=== PATIENT | male | born 1960 | race Hispanic/Latino ===

== ENCOUNTER 2016-10-27 06:34 | Emergency (ER) | payer MEDICAID ==
[2016-10-27 06:53] VITALS: BMI 32.1
[2016-10-27 06:57] VITALS: BP 126/80; PULSE 83; RESP 16; TEMP 98; O2SAT 97
[2016-10-27] MEDS ORDERED: Naproxen 500 MG TAB PO ONE ×2 (07:25→07:31)
--- NOTE | 2016-10-27 09:32 | ED PDOC ---
HPI: Trauma/Fall - HPI Time Seen by Provider: 10/27/16 07:06 Chief Complaint (Nursing): Upper Extremity Problem/Injury Chief Complaint (Provider): fall History Per: Patient History/Exam Limitations: no limitations Onset/Duration Of Symptoms: Days (x 1) Injury Occurred (Timing): Days Ago: (last night) Additional Complaint(s): Jorgito Mcpherson is a 56 year old male, with a previous medical history of diabetes , who presents to the ED for the evaluations of injuries he sustained secondary to falling last night after consuming 5 beers. Patient reports pain to the right wrist associated with swelling and pain to the left hip. Patient reports walking in the park and tripping stating he broke his fall with his wrists. He denies any head trauma, loss of consciousness, numbness or tingling. He reports going home after the fall and feeling fine but woke up with the pain. PMD: Family Practice Past Medical History Reviewed: Historical Data, Nursing Documentation, Vital Signs Vital Signs: Last Vital Signs Temp 98 F 10/27/16 06:53 Pulse 83 10/27/16 06:53 Resp 16 10/27/16 06:53 BP 126/80 10/27/16 06:53 Pulse Ox 97 10/27/16 09:37 - Medical History PMH: Depression, Diabetes (uncontrolled w/associated neuropathy), HTN, Hypercholesterolemia, Sleep Apnea, Chronic Pain (b/l legs/feet) Denies: Chronic Kidney Disease - Surgical History Surgical History: Appendectomy - Family History Family History: States: Unknown Family Hx - Home Medications Home Medications: Ambulatory Orders Medication Instructions Recorded Atorvastatin [Lipitor] 80 mg PO DAILY 04/01/15 Azelastine HCl [Azelastine HCl] 137 mcg NS DAILY 04/01/15 Duloxetine HCl [Duloxetine] 30 mg PO DAILY 04/01/15 Enalapril Maleate [Enalapril] 5 mg PO DAILY 04/01/15 Fluticasone Nasal [Flonase] 1 spr NS DAILY 04/01/15 Gabapentin [Neurontin] 600 mg PO QID 04/01/15 Glipizide [Glipizide Xl] 5 mg PO DAILY 04/01/15 Montelukast Sodium [Singulair] 10 mg PO DAILY 04/01/15 [place]-3 Fatty Acids/Fish Oil [Fish 1,200 mg PO DAILY 04/01/15 Oil 1,000 mg Capsule] Oxycodone HCl/Acetaminophen 1 tab PO Q4 PRN #20 tab 04/01/15 [Percocet 325 mg-5 mg] Sitagliptin Phos/Metformin HCl 1 ter PO BID 04/01/15 [Janumet Xr 1000 mg-50 mg] Acetaminophen/Oxycodone Hydr 1 mg PO Q4 PRN 04/14/15 [Percocet 10/325 mg Tab] Ibuprofen [Motrin] 600 mg PO TID PRN #30 tab 09/03/15 diaZEpam [Valium] 5 mg PO Q8 PRN #12 tab 09/03/15 oxyCODONE/Acetaminophen [Percocet 1 ea PO Q6 PRN #10 tab 09/03/15 5/325 mg Tab] Naproxen [Naprosyn] 500 mg PO BID PRN #20 tablet 10/27/16 traMADol [Ultram] 50 mg PO TID PRN #12 tab 10/27/16 - Allergies Allergies/Adverse Reactions: Allergies Allergy/AdvReac Type Severity Reaction Status Date / Time No Known Allergies Allergy Verified 10/27/16 06:52 Review of Systems ROS Statement: Except As Marked, All Systems Reviewed And Found Negative Musculoskeletal: Positive for: Hand Pain (right wrist ), Other (left hip pain ) Neurological: Negative for: Numbness, Other (tingling, head trauma, loss of consciousness ) Physical Exam - Reviewed Nursing Documentation Reviewed: Yes Vital Signs Reviewed: Yes - Physical Exam Appears: Positive for: Well, Non-toxic, No Acute Distress Head Exam: Positive for: ATRAUMATIC, NORMAL INSPECTION, NORMOCEPHALIC Skin: Positive for: Normal Color, Warm, Dry Cardiovascular/Chest: Positive for: Regular Rate, Rhythm Respiratory: Positive for: CNT, Normal Breath Sounds Pulses-Radial (L): 2+ Pulses-Radial (R): 2+ Back: Positive for: Normal Inspection. Negative for: Vertebral Tenderness Extremity: Positive for: Tenderness (right wrist at the distl radial and ulnar. no tenderness to the hip with palpation ), Capillary Refill (< 2 seconds ), Swelling (induration of the right wrist ). Negative for: Normal ROM ( difficulty flexing and extending the right wrist ), Deformity Neurologic/Psych: Positive for: Alert, Oriented - ECG O2 Sat by Pulse Oximetry: 97 (R) Pulse Ox Interpretation: Normal - Radiology X-Ray: Interpreted by Me, Viewed By Me X-Ray Interpretation: Fracture (nondisplaced distal radial fracture of the right wrist ), Other (Left hip x-ray is negative for any findings.) Medical Decision Making Medical Decision Making: Initial Impression: Wrist sprain vs fracture Initial Plan: * x-ray right hand * x-ray right wrist * naproxen 500 mg PO * x-ray pelvis * reevaluation Scribe Attestation: Documented by Johanne Grant, acting as a scribe for Krystyna Hobbs MD. Provider Scribe Attestation: All medical record entries made by the Scribe were at my direction and personally dictated by me. I have reviewed the chart and agree that the record accurately reflects my personal performance of the history, physical exam, medical decision making, and the department course for this patient. I have also personally directed, reviewed, and agree with the discharge instructions and disposition. Disposition - Clinical Impression Clinical Impression: Distal radius fracture, right - Patient ED Disposition Is Patient to be Admitted: No Doctor Will See Patient In The: Office Counseled Patient/Family Regarding: Diagnosis, Need For Followup, Rx Given - Disposition Referrals: [facility] [Outside] [facility] [Outside] Disposition: Routine/Home Disposition Time: 09:30 Condition: STABLE Prescriptions: Naproxen [Naprosyn] 500 mg PO BID PRN #20 tablet PRN Reason: Pain, Moderate (4-7) traMADol [Ultram] 50 mg PO TID PRN #12 tab PRN Reason: breakthrough Instructions: Wrist Fracture in Adults (ED) Forms: [employer] (Kosovan) - POA Present On Arrival: Falls Or Trauma
--- NOTE | 2016-10-27 10:13 | RAD ---
PROCEDURE: Right Hand Radiographs. HISTORY: fall onto wrist/hand last night COMPARISON: None. FINDINGS: BONES: No acute displaced fracture or dislocation. Bone alignment is normal. There is periarticular bone demineralization. JOINTS: There is mild degenerative osteoarthrosis in the proximal and distal interphalangeal joints. SOFT TISSUES: Normal. OTHER FINDINGS: None. IMPRESSION: No acute displaced fracture or dislocation.
--- NOTE | 2016-10-27 10:21 | RAD ---
PROCEDURE: Right Wrist Radiographs. HISTORY: fall onto wrist last night COMPARISON: None. FINDINGS: BONES: There is an acute oblique intra-articular fracture in the distal radius. There is also a displaced fracture fragment in posterior to the proximal carpal row. There is an apparent transverse lucency in the trapezoid. Bone alignment is normal. There is mild bone demineralization. JOINTS: Normal. No dislocation. SOFT TISSUES: There is moderate dorsal soft tissue swelling at the wrist joint OTHER FINDINGS: None. IMPRESSION: Acute oblique intra-articular fracture in the distal radius. No dislocation. Also suspected is acute displaced fracture in the trapezoid with 3 mm posterior displacement of the fracture fragment. Moderate dorsal soft tissue swelling.
--- NOTE | 2016-10-27 11:20 | RAD ---
PROCEDURE: Radiographs of the pelvis. HISTORY: fall COMPARISON: None. FINDINGS: BONES: The pelvic ring is intact. There is no acute displaced fracture or bone destruction. Bone alignment is normal. JOINTS: There is mild degenerative osteoarthrosis in the hip joints. The sacroiliac joints are normal. OTHER FINDINGS: None. IMPRESSION: No acute displaced fracture or dislocation.
== END 2016-10-27 10:16 | disposition home or self-care (01) ==
LOC: H.ER 06:34
DX: S52.501A Unspecified fracture of the lower end of right radius, initial encounter for closed fracture (principal); W19.XXXA Unspecified fall, initial encounter; Y92.89 Other specified places as the place of occurrence of the external cause; E11.40 Type 2 diabetes mellitus with diabetic neuropathy, unspecified; E78.00 Pure hypercholesterolemia, unspecified; F32.9 Major depressive disorder, single episode, unspecified; G47.30 Sleep apnea, unspecified; G89.29 Other chronic pain; I10 Essential (primary) hypertension

== ENCOUNTER 2016-11-07 13:35 | Emergency (ER) | payer MEDICAID ==
[2016-11-07 13:35] VITALS: BMI 32.1
[2016-11-07 13:50] VITALS: BP 123/76; PULSE 105; RESP 18; TEMP 98.6; O2SAT 97
--- NOTE | 2016-11-07 14:31 | ED PDOC ---
Upper Extremity Pain/Injury Time Seen by Provider: 11/07/16 13:56 Chief Complaint (Nursing): Finger,Hand,&Wrist Chief Complaint (Provider): Right hand injury History Per: Patient History/Exam Limitations: no limitations Onset/Duration Of Symptoms: Hrs Current Symptoms Are (Timing): Still Present Additional Complaint(s): 56 y/o male presents to the ED for evaluation of pain in his right hand and wrist. Patient recently sustained a fracture in his right wrist/hand and was told to follow up with his orthopedist; patient reports he missed his appointment today and he is also out of his pain medications, prompting his visit to the ED. Patient additionally reports discomfort due to the splint. Patient denies any numbness, tingling. Offers no additional medical complaints. Patient was taking ultram but ran out this med 2 days ago. Past Medical History Reviewed: Historical Data, Nursing Documentation, Vital Signs Vital Signs: Last Vital Signs Temp 98.6 F 11/07/16 13:49 Pulse 105 H 11/07/16 13:49 Resp 18 11/07/16 13:49 BP 123/76 11/07/16 13:49 Pulse Ox 97 11/07/16 13:49 - Medical History PMH: Depression, Diabetes (uncontrolled w/associated neuropathy), HTN, Hypercholesterolemia, Sleep Apnea, Chronic Pain (b/l legs/feet) - Surgical History Surgical History: Appendectomy - Family History Family History: States: No Known Family Hx - Living Arrangements Living Arrangements: Alone - Social History Current smoker - smoking cessation education provided: No Alcohol: None Drugs: Denies - Home Medications Home Medications: Ambulatory Orders Medication Instructions Recorded Atorvastatin [Lipitor] 80 mg PO DAILY 04/01/15 Azelastine HCl [Azelastine HCl] 137 mcg NS DAILY 04/01/15 Duloxetine HCl [Duloxetine] 30 mg PO DAILY 04/01/15 Enalapril Maleate [Enalapril] 5 mg PO DAILY 04/01/15 Fluticasone Nasal [Flonase] 1 spr NS DAILY 04/01/15 Gabapentin [Neurontin] 600 mg PO QID 04/01/15 Glipizide [Glipizide Xl] 5 mg PO DAILY 04/01/15 Montelukast Sodium [Singulair] 10 mg PO DAILY 04/01/15 [place]-3 Fatty Acids/Fish Oil [Fish 1,200 mg PO DAILY 04/01/15 Oil 1,000 mg Capsule] Oxycodone HCl/Acetaminophen 1 tab PO Q4 PRN #20 tab 04/01/15 [Percocet 325 mg-5 mg] Sitagliptin Phos/Metformin HCl 1 ter PO BID 04/01/15 [Janumet Xr 1000 mg-50 mg] Acetaminophen/Oxycodone Hydr 1 mg PO Q4 PRN 04/14/15 [Percocet 10/325 mg Tab] Ibuprofen [Motrin] 600 mg PO TID PRN #30 tab 09/03/15 diaZEpam [Valium] 5 mg PO Q8 PRN #12 tab 09/03/15 oxyCODONE/Acetaminophen [Percocet 1 ea PO Q6 PRN #10 tab 09/03/15 5/325 mg Tab] Naproxen [Naprosyn] 500 mg PO BID PRN #20 tablet 10/27/16 traMADol [Ultram] 50 mg PO TID PRN #12 tab 10/27/16 Ibuprofen [Motrin Tab] 800 mg PO Q8 PRN #20 tab 11/07/16 - Allergies Allergies/Adverse Reactions: Allergies Allergy/AdvReac Type Severity Reaction Status Date / Time No Known Allergies Allergy Verified 11/07/16 13:47 Review of Systems ROS Statement: Except As Marked, All Systems Reviewed And Found Negative Musculoskeletal: Positive for: Hand Pain (right hand and wrist pain) Physical Exam - Reviewed Nursing Documentation Reviewed: Yes Vital Signs Reviewed: Yes - Physical Exam Appears: Positive for: Well, Non-toxic, No Acute Distress Head Exam: Positive for: ATRAUMATIC, NORMAL INSPECTION, NORMOCEPHALIC Skin: Positive for: Normal Color Eye Exam: Positive for: Normal appearance Cardiovascular/Chest: Positive for: Regular Rate, Rhythm Respiratory: Positive for: Normal Breath Sounds. Negative for: Respiratory Distress Extremity: Positive for: Other (volar splint in place to right wrist and hand; no clinical indication of compartment syndrome, normal distal sensation, normal cap refill) Neurologic/Psych: Positive for: Alert, Oriented - ECG O2 Sat by Pulse Oximetry: 97 (RA) Pulse Ox Interpretation: Normal - Other Rad Right hand and wrist x-ray X-Ray: Interpreted by Me, Viewed By Me X-Ray Interpretation: distal radius fracture Medical Decision Making Medical Decision Making: Time: 1405 Impression: Right wrist fracture Plan: * XR Right Hand * XR Right wrist * Motrin 600 mg PO Gil wraps of splint were replaced. Patient states splint feels better. I called clinic and was able to arrange for follow up visit for patient tomorrow morning at 9:20 am. Patient was instructed to obtain referral from clinic doctor for his upcoming visit with orthopedist next week. Rx motrin also was given. Scribe Attestation: Documented by Sonya Lemus acting as a scribe for SHER Clayton Provider Attestation: All medical record entries made by the Scribe were at my direction and personally dictated by me. I have reviewed the chart and agree that the record accurately reflects my personal performance of the history, physical exam, medical decision making, and the department course for this patient. I have also personally directed, reviewed, and agree with the discharge instructions and disposition. Disposition - Clinical Impression Clinical Impression: Wrist fracture - Patient ED Disposition Is Patient to be Admitted: No Counseled Patient/Family Regarding: Diagnosis, Need For Followup, Rx Given - Disposition Referrals: [facility] [Outside] Disposition: Routine/Home Disposition Time: 15:35 Condition: STABLE Additional Instructions: GO DIRECTLY TO CLINIC IN THE MORNING FOR YOUR APPOINTMENT AT 9:20 AM. PLEASE ARRIVE AT 9:10 AM FOR YOUR APPOINTMENT. Prescriptions: Ibuprofen [Motrin Tab] 800 mg PO Q8 PRN #20 tab PRN Reason: Pain, Moderate (4-7) Instructions: Splint Care (ED), Wrist Fracture in Adults (ED)
--- NOTE | 2016-11-07 16:18 | RAD ---
PROCEDURE: Right Hand Radiographs. HISTORY: trauma COMPARISON: 10/27/2016 FINDINGS: BONES: Oblique nondisplaced fracture of the distal radius, intra-articular. This involves the radial styloid process. Probable triquetrum fracture. Posteriorly displaced fragment identified in the lateral view. No other fracture identified. Joint spaces and articular surfaces are preserved. JOINTS: Normal. No osteoarthritic changes. SOFT TISSUES: Normal. OTHER FINDINGS: None. IMPRESSION: Oblique nondisplaced intra-articular distal radial fracture. Probable triquetrum fracture.
--- NOTE | 2016-11-07 16:20 | RAD ---
PROCEDURE: Right Wrist Radiographs. HISTORY: trauma COMPARISON: 10/27/2016 FINDINGS: BONES: Comminuted nondisplaced intra-articular distal radial fracture. There is an oblique component appreciated in the oblique projection. There is also fracture seen in the dorsal aspect of the distal radius in the lateral view. There is a probable triquetrum fracture with dorsal displacement of a bony fragment, in the lateral projection. The ulnar styloid process is intact. There is no other fracture identified. Normal carpal alignment is maintained. JOINTS: Normal. No dislocation. SOFT TISSUES: Normal. OTHER FINDINGS: None. IMPRESSION: Probable comminuted nondisplaced distal radial fracture, intra-articular. Suspect triquetrum fracture.
== END 2016-11-07 16:13 | disposition home or self-care (01) ==
LOC: H.ER 13:35
DX: Z47.89 Encounter for other orthopedic aftercare (principal); E11.40 Type 2 diabetes mellitus with diabetic neuropathy, unspecified; E78.00 Pure hypercholesterolemia, unspecified; I10 Essential (primary) hypertension; G89.29 Other chronic pain

== ENCOUNTER 2017-10-05 21:30 | Observation (INO) | payer MEDICAID ==
[2017-10-05 21:30] VITALS: BMI 32.1
[2017-10-05 23:40] LABS: BASO # 0.1 K/uL (0.0-0.2); BASO % 0.6 % (0.0-2.0); EOS # 0.3 K/uL (0.0-0.7); HEMOGLOBIN 12.1 g/dL (12.0-18.0); LYMPH # 2.3 K/uL (1.0-4.3); LYMPH % 26.8 % (20.0-40.0); MEAN CELL VOLUME 84.9 fl (80.0-94.0); MEAN CORPUSCULAR HEMOGLOBIN 27.8 pg (27.0-31.0); MEAN CORPUSCULAR HGB CONC 32.8 g/dL (33.0-37.0); MEAN PLATELET VOLUME 9.1 fl (7.2-11.7); MONO # 0.9 K/uL (0.0-0.8); MONO % 9.8 % (0.0-10.0); NEUT # 5.2 K/uL (1.8-7.0); NEUT % 59.8 % (50.0-75.0); RBC 4.34 Mil/uL (4.40-5.90); RED CELL DISTRIBUTION WIDTH 14.8 % (11.5-14.5); WHITE BLOOD COUNT 8.7 K/uL (4.8-10.8)
--- NOTE | 2017-10-05 23:47 | ED PDOC ---
Syncope/Near Syncope/Dizziness Time Seen by Provider: 10/05/17 22:43 Chief Complaint (Nursing): Dizziness/Lightheaded Chief Complaint (Provider): Dizziness History Per: Patient History/Exam Limitations: no limitations Onset/Duration Of Symptoms: Days (x1), Intermittent Episodes Current Symptoms Are (Timing): Still Present Seizure Or Post-ictal Symptoms: None Fall Associated With With Symptoms: No Injury As Result Of Fall Additional Complaint(s): Jorgito Mcpherson is a 57 year old male, with a past medical history of hypertension and diabetes, who presents to the emergency department complaining of intermittent episodes of dizziness for x1 day onset since this morning when he woke up. Patient states he felt dizzy and fell back on his mattress. He reports intermittent periods of dizziness throughout the day, he states they are not provoked with positioning and last few minutes. He denies any chest pain, shortness of breath, nausea, vomiting, or syncope. No further medical complaints. PMD: None provided. NIHSS Stroke Scale 2 - Date/Time Evaluation Performed Date Performed: 10/05/17 Time Performed: 22:46 When Was NIHSS Performed: Baseline - How Severe is the Stroke Level of Consciousness: 0=Alert LOC to Questions: 0=Both comments correct LOC to commands: 0=Obeys both correctly Best Gaze: 0=Normal Visual: 0=No visual loss Facial: 0=Normal Motor Arm - Left: 0=No drift Motor Arm - Right: 0=No drift Motor Leg - Left: 0=No drift Motor Leg - Right: 0=No drift Limb Ataxia: 0=Absent Sensory: 0=Normal Best Language: 0=No aphasia Dysarthia: 0=Normal articulation Extinction & Inattention (Neglect): 0=Normal, no object Score: 0 Past Medical History Reviewed: Historical Data, Nursing Documentation, Vital Signs Vital Signs: Last Vital Signs Temp 98.1 F 10/05/17 22:15 Pulse 74 10/05/17 22:15 Resp 18 10/05/17 22:15 BP 116/67 10/05/17 22:15 Pulse Ox 99 10/05/17 22:15 - Medical History PMH: Depression, Diabetes (uncontrolled w/associated neuropathy), HTN, Hypercholesterolemia, Sleep Apnea, Chronic Pain (b/l legs/feet) Denies: Chronic Kidney Disease - Surgical History Surgical History: Appendectomy - Family History Family History: States: Unknown Family Hx - Social History Ex-Smoker (has not smoked in the last 12 months): Yes Alcohol: Social Drugs: Denies - Home Medications Home Medications: Ambulatory Orders Medication Instructions Recorded Atorvastatin [Lipitor] 80 mg PO DAILY 04/01/15 Azelastine HCl 137 mcg NS DAILY 04/01/15 Duloxetine HCl 30 mg PO DAILY 04/01/15 Enalapril Maleate 5 mg PO DAILY 04/01/15 Gabapentin [Neurontin] 1,600 mg PO BID 04/01/15 Glipizide [Glipizide Xl] 5 mg PO DAILY 04/01/15 Montelukast Sodium [Singulair] 10 mg PO DAILY 04/01/15 - Allergies Allergies/Adverse Reactions: Allergies Allergy/AdvReac Type Severity Reaction Status Date / Time No Known Allergies Allergy Verified 11/07/16 13:47 Review of Systems ROS Statement: Except As Marked, All Systems Reviewed And Found Negative Cardiovascular: Negative for: Chest Pain Respiratory: Negative for: Shortness of Breath Gastrointestinal: Negative for: Nausea, Vomiting Neurological: Positive for: Dizziness. Negative for: Other (syncope) Physical Exam - Reviewed Nursing Documentation Reviewed: Yes Vital Signs Reviewed: Yes - Physical Exam Appears: Positive for: Non-toxic Head Exam: Positive for: ATRAUMATIC, NORMOCEPHALIC Skin: Positive for: Normal Color, Warm, Dry Eye Exam: Positive for: Normal appearance, EOMI, PERRL. Negative for: Nystagmus Neck: Positive for: Painless ROM, Supple Cardiovascular/Chest: Positive for: Regular Rate, Rhythm. Negative for: Murmur Respiratory: Positive for: Normal Breath Sounds. Negative for: Respiratory Distress Gastrointestinal/Abdominal: Positive for: Normal Exam, Soft. Negative for: Tenderness Back: Negative for: L CVA Tenderness, R CVA Tenderness, Vertebral Tenderness Extremity: Positive for: Normal ROM (upper and lower extremities). 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 Negative for: Motor/Sensory Deficits , Aphasia, Facial Droop - Laboratory Results Result Diagrams: 10/05/17 23:36 10/06/17 06:30 - ECG O2 Sat by Pulse Oximetry: 99 (RA) Pulse Ox Interpretation: Normal Medical Decision Making Medical Decision Making: Time: 22:43 Initial Impression: Dizziness. Differential includes peripheral vertigo, consideration of BPPV and vestibular nystagmus; central vertigo considering posterior cerebellar circulation deficiency Initial Plan: --Head w/o contrast [CT] --EKG --BMP --Troponin I --CBC w/ differential --PTT --PT --Reevaluation 00:00 -Patient will be endorsed to Dr. Suarez, pending CT and reevaluation. ----- Scribe Attestation: Documented by Fernando Callejas, acting as a scribe for Jolly Shea MD. Provider Scribe Attestation: All medical record entries made by the Scribe were at my direction and personally dictated by me. I have reviewed the chart and agree that the record accurately reflects my personal performance of the history, physical exam, medical decision making, and the department course for this patient. I have also personally directed, reviewed, and agree with the discharge instructions and disposition. Disposition - Clinical Impression Clinical Impression: Dizziness - Patient ED Disposition Is Patient to be Admitted: Transfer of Care Counseled Patient/Family Regarding: Studies Performed, Diagnosis - Disposition Disposition: Transfer of Care Disposition Time: 12:00 Condition: STABLE Patient Signed Over To: Eron Suarez Handoff Comments: Pending CT and reeval rTPA Inclusion/Exclusion - Refusal of Treatment Patient Refused Treatment: No - Inclusion Criteria for Altepase Patient is 18 years or Older: Yes Clinical DX Ischemic Stroke Cause Neurological Deficit: No Time of Onset Established Less Than 270 Mins Before TX Begin: No Risk/Benefit Discussed With Patient/Family Member Present: No
[2017-10-05 23:48] LABS: BLOOD UREA NITROGEN 32 mg/dl (9-20); CALCIUM 9.2 mg/dL (8.4-10.2); GFR AFRICAN-AMERICAN > 60; GFR NON-AFRICAN AMERICAN 52
--- NOTE | 2017-10-06 00:02 | ED PDOC ---
- Laboratory Results Result Diagrams: 10/05/17 23:36 10/05/17 23:36 - ECG O2 Sat by Pulse Oximetry: 99 (RA) Medical Decision Making Medical Decision Makin:00 -Patient was endorsed to me by Dr. Shea, pending CT and reevaluation 00:[address] FINDINGS: Brain: Areas of decreased attenuation noted within the periventricular and subcortical white matter likely related to chronic microangiopathic ischemic changes given the patient's stated age.There is mild diffuse cerebral atrophy present, consistent with this patient's age. No hemorrhage. Ventricles: Unremarkable. No ventriculomegaly. Bones/joints: Unremarkable. No acute fracture. Soft tissues: Unremarkable. Sinuses: Partial opacification of the left sphenoid sinus and ethmoids. Mastoid air cells: Unremarkable as visualized. No mastoid effusion. IMPRESSION: No evidence of acute intracranial hemorrhage. Patient seen at bedside, states he feels well, no dizziness since 4PM. Patient reiterates that his dizziness was not positional, not extinguished by rest. Will admit for MRI in AM for possible occipital/cerebellar cause of dizziness. Case admitted to FP service. Disposition - Clinical Impression Clinical Impression: Dizziness - POA Present On Arrival: None - Disposition Disposition: Hospitalized as Observation Patient Disposition Time: 00:40 Condition: FAIR
[2017-10-06 00:26] LABS: INR 1.1 (0.9-1.2); PARTIAL THROMBOPLASTIN TIME 28.2 Seconds (25.6-37.1); PROTHROMBIN TIME 11.9 Seconds (9.8-13.1)
[2017-10-06] MEDS ORDERED: Dextrose 50% SYRINGE Inj (50 ml) IV PRN ×2 (02:51→08:15)
[2017-10-06] MEDS ORDERED: Glucagon Recombinant 1 mg Inj IM PRN ×2 (02:51→08:15)
[2017-10-06] MEDS: Sodium Chloride 0.9% 500 ML IV SCH ×2 (02:57→07:51)
--- NOTE | 2017-10-06 03:32 | CP.PCM.HP ---
Addendum entered and electronically signed by Becky Magallanes MD 10/06/17 16:02: [place] hallpike maneuver negative Addendum entered and electronically signed by Becyk Magallanes MD 10/06/17 14:37: S: Patient seen and examined this morning at bedside, NAD. Patient reports no dizziness, tolerating PO intake. Denies dizziness, weakness, palpitations, SOB, chest pain, blurred vision, abdominal pain, f/c/n/v, urinary symptoms or numbness/tingling. O: HD stable, CBC, CMP reviewed, Troponin negative EKG: NSR Head CT: No acute intracranial pathology MRI Head: Prelim; No acute finding (Prelim report result was endorsed by Dr. Santana from [facility]) A/P: 57 y/o male for evaluation of one day hx of intermittent dizziness -Patient is currently asymptomatic, Labs and imaging reviewed with patient, patient agrees with discharge plan, follow up with PMD. ER precautions discussed with patient. -Discharge Original Note: History of Present Illness - History of Present Illness History of Present Illness: 57 y/o male with PMHx of HTN, DM type 2, Sleep Apnea, HLD presents to ED complaining of intermittent episodes of dizziness for one day. Reports that dizziness episodes felt like lightheadedness sensation. First episode he was walking, coming back from the bathroom, felt dizzy associated with poor balance , and fell back on his mattress, " I collapsed on my mattress", but denies LOC. States most of the episodes happened when he changed from sitting to standing position. Denies chest pain, SOB, palpitations, blurry vision, nausea or other complains during the dizziness episodes. Denies fevers, diarrheas, or dysuria. Reports waking up at night 2-3 times to urinate, and sometimes 4-5 times. PMD: Dr. Hitchcock at [facility] Allergies: NKDA SurgicalHx: Plantar fascitis, Left foot Fx, Cholecystectomy SocialHx: Former smoker, etoh occasional, denies illicit drugs ER course -vital signs stable WNL -Alert, awake, unremarkable neurological exam -labs: CBC, coagulation panel unremarkable. CMP: slightly elevated BUN, and random glucose -troponin I wnl -Head CT scan reported as no evience of intracraneal hemorrhage. Unremarkable study. Pending official report Present on Admission - Present on Admission Any Indicators Present on Admission: No History of DVT/PE: No History of Uncontrolled Diabetes: No Urinary Catheter: No Decubitus Ulcer Present: No Review of Systems - Review of Systems All systems: reviewed and no additional remarkable complaints except (as per HPI ) Past Patient History - Past Medical History & Family History Past Medical History?: Yes - Past Social History Alcohol: Social Drugs: Denies - CARDIAC Hx Cardiac Disorders: Yes - PULMONARY Hx Sleep Apnea: Yes - NEUROLOGICAL Hx Neurological Disorder: No - HEENT Hx HEENT Problems: No - RENAL Hx Chronic Kidney Disease: No - ENDOCRINE/METABOLIC Hx Endocrine Disorders: Yes - HEMATOLOGICAL/ONCOLOGICAL Hx Blood Disorders: Yes Hx Shingles: Yes - INTEGUMENTARY Hx Dermatological Problems: No - MUSCULOSKELETAL/RHEUMATOLOGICAL Hx Falls: Yes - GASTROINTESTINAL Hx Gastrointestinal Disorders: No - GENITOURINARY/GYNECOLOGICAL Hx Genitourinary Disorders: No - PSYCHIATRIC Hx Depression: Yes - SURGICAL HISTORY Hx Appendectomy: Yes - ANESTHESIA Hx Anesthesia: Yes Hx Anesthesia Reactions: No Hx Malignant Hyperthermia: No Meds Allergies/Adverse Reactions: Allergies Allergy/AdvReac Type Severity Reaction Status Date / Time No Known Allergies Allergy Verified 11/07/16 13:47 Physical Exam - Constitutional Appears: Non-toxic, No Acute Distress - Head Exam Head Exam: ATRAUMATIC, NORMOCEPHALIC - Eye Exam Eye Exam: EOMI, Normal appearance Pupil Exam: PERRL - ENT Exam ENT Exam: Mucous Membranes Dry - Neck Exam Neck exam: Positive for: Full Rom, Normal Inspection - Respiratory Exam Respiratory Exam: Clear to Auscultation Bilateral, NORMAL BREATHING PATTERN. absent: Chest Wall Tenderness, Rales, Rhonchi, Wheezes, Respiratory Distress - Cardiovascular Exam Cardiovascular Exam: REGULAR RHYTHM, +S1, +S2 - GI/Abdominal Exam GI & Abdominal Exam: Normal Bowel Sounds, Soft. absent: Distended, Rebound, Rigid, Tenderness Additional comments: Obese - Extremities Exam Extremities exam: Positive for: normal inspection. Negative for: calf tenderness, pedal edema - Back Exam Back exam: NORMAL INSPECTION - Neurological Exam Neurological exam: Alert, CN II-XII Intact, Normal Gait, Oriented x3, Reflexes Normal - Psychiatric Exam Psychiatric exam: Normal Affect, Normal Mood - Skin Skin Exam: Dry, Intact, Normal Color, Warm Results - Vital Signs Recent Vital Signs: Last Vital Signs Temp 98.1 F 10/06/17 03:00 Pulse 61 06/16/18 03:00 Resp 14 10/06/17 03:00 BP 100/62 10/06/17 03:00 Pulse Ox 96 10/06/17 03:00 - Labs Result Diagrams: 10/05/17 23:36 10/05/17 23:36 Labs: Laboratory Results - last 24 hr 10/05/17 10/05/17 10/05/17 23:36 23:36 23:36 WBC 8.7 RBC 4.34 L Hgb 12.1 Hct 36.8 MCV 84.9 MCH 27.8 MCHC 32.8 L RDW 14.8 H Plt Count 202 MPV 9.1 Neut % (Auto) 59.8 Lymph % (Auto) 26.8 [place] % (Auto) 9.8 Eos % (Auto) 3.0 Baso % (Auto) 0.6 Neut # (Auto) 5.2 Lymph # (Auto) 2.3 [place] # (Auto) 0.9 H Eos # (Auto) 0.3 Baso # (Auto) 0.1 PT 11.9 INR 1.1 APTT 28.2 Sodium 135 Potassium 4.5 Chloride 100 Carbon Dioxide 22 Anion Gap 18 BUN 32 H Creatinine 1.4 Est GFR ( Amer) > 60 Est GFR (Non-Af Amer) 52 Random Glucose 172 H Calcium 9.2 Troponin I 0.0470 Assessment & Plan - Assessment and Plan (Free Text) Assessment: 57 y/o male with PMHx of HTN, DM type 2, Sleep Apnea, HLD admitted with persistent dizziness. Plan: Dizziness -MedSurg -denies syncope episodes -Orthostatic BP: negative for Orthostatic Hypotension. Lyin/70, sittin/70, standin/65 -troponin I negative -EKG: NSR, HR: 61, no evidence of ST-T wave changes -Head CT scan reported as no evidence of intracraneal hemorrhage. Unremarkable study. Pending official report -as per ER provider will need Brain MRI w/o contrast in AM to r/o possible occipital/cerebellar cause of dizziness. -f/u Brain MRI w/o contrast in AM Diabetes Mellitus type 2 -as per records noted in eCW -Metformin 1000 mg BID PO -Glipizide XL 5 mg PO -Alogliptin 25 mg PO ( because we do not have in house, Pharmacy was called and substitute is Sitagliptin 100 mg PO) -accucheck -check HgbA1C, last time checked was in 2017 and was 9.8 -check lipid profile, as per [employer]/eCW not recently tested -Hypoglycemic protocol DVT prophylaxis -SCDs lovenox 40 mg SC - Date & Time Date: 10/06/17 Time: 03:30
[2017-10-06 05:02] VITALS: RESP 18
[2017-10-06] MEDS ORDERED: Pneumococcal 23-Valent Vaccine IM ONE (05:19)
[2017-10-06 07:50] LABS: HDL CHOLESTEROL 22 MG/DL (30-70)
[2017-10-06 08:00] LABS: LDL CHOLESTEROL 64 mg/dL (0-129)
[2017-10-06] MEDS ORDERED: Sodium Chloride 0.9% 1,000 ML IV SCH (08:15)
[2017-10-06 08:20] LABS: ALB/GLOB RATIO 1.1 (1.0-2.1); ALBUMIN 3.4 g/dL (3.5-5.0); ALT/SGPT 32 U/L (21-72); AST/SGOT 19 U/L (17-59); BLOOD UREA NITROGEN 28 mg/dl (9-20); GFR AFRICAN-AMERICAN > 60; GFR NON-AFRICAN AMERICAN > 60
--- NOTE | 2017-10-06 08:29 | CP.PCM.PCO ---
Physician Communication Note - Physician Communication Note Physician Communication Note: Dr Cash Addendum Addendum: 10/06/17 08:[address] Rm regarding Ativan dosing in patient with known AVINASH for hx of claustrophobic feelings during MRI. Agreed to administer 1mg IVP and order an additional 1mg IVP IF the patient still feeling anxious. This was communicated clearly to nursing staff on 6S.
[2017-10-06] MEDS ORDERED: GlipiZIDE 5 mg SR Tab PO SCH (09:00)
--- NOTE | 2017-10-06 09:29 | CT ---
PROCEDURE: CT HEAD WITHOUT CONTRAST. HISTORY: dizziness COMPARISON: None available. TECHNIQUE: Axial computed tomography images were obtained through the head/brain without intravenous contrast. Radiation dose: Total exam DLP = 776.2 mGy-cm. This CT exam was performed using one or more of the following dose reduction techniques: Automated exposure control, adjustment of the mA and/or kV according to patient size, and/or use of iterative reconstruction technique. FINDINGS: HEMORRHAGE: No intracranial hemorrhage. BRAIN: No mass effect or edema. No atrophy or chronic microvascular ischemic changes. Right caudate head lacunar infarction. VENTRICLES: Unremarkable. No hydrocephalus. CALVARIUM: Unremarkable. PARANASAL SINUSES: Scattered ethmoid air cell opacification. MASTOID AIR CELLS: Prior right mastoidectomy OTHER FINDINGS: None. IMPRESSION: No acute intracranial pathology.
[2017-10-06 16:16] VITALS: BP 113/62; PULSE 52; TEMP 97.9; O2SAT 96
[2017-10-06 18:05] LABS: SQUAMOUS EPITHIAL < 1 /hpf (0-5); URINE BACTERIA RARE (<OCC); URINE BILIRUBIN NEGATIVE (NEGATIVE); URINE BLOOD NEGATIVE (NEGATIVE); URINE CLARITY CLEAR (Clear); URINE COLOR YELLOW (YELLOW); URINE GLUCOSE (UA) >=500 mg/dL (Normal); URINE LEUKOCYTE ESTERASE NEG Leu/uL (Negative); URINE PROTEIN NEGATIVE (NEGATIVE); URINE UROBILINOGEN 0.2-1.0 mg/dL (0.2-1.0)
[2017-10-06] MEDS ORDERED: Enoxaparin 40 mg Syringe SC SCH (22:00)
--- NOTE | 2017-10-07 18:33 | MRI ---
PROCEDURE: MRI BRAIN WITHOUT CONTRAST HISTORY: Dizziness/pre-syncope COMPARISON: None. TECHNIQUE: Multiplanar, multisequence MR images of the brain were obtained without intravenous contrast enhancement. FINDINGS: HEMORRHAGE: None DWI: No evidence of an acute or early subacute infarction. BRAIN PARENCHYMA: Good corticomedullary differentiation is seen. Diffuse expansion of the ventriculosulcal and cisternal spaces is appreciated with white matter increased long TR signal compatible with diffuse cerebral atrophy and chronic microangiopathy. No suspicious extra-axial fluid collection is identified and the midline brain anatomy appears grossly nonfocal as imaged. There is no mass effect throughout. VENTRICLES: Unremarkable. No hydrocephalus. CRANIUM: Unremarkable. ORBITS: Grossly unremarkable. PARANASAL SINUSES/MASTOIDS: Clear VASCULAR SYSTEM: Skull base flow voids intact. OTHER FINDINGS: None. IMPRESSION: Stable age-appropriate age related neuro degenerative changes identified throughout the cerebrum. No acute intracranial MR findings. Concordant preliminary report from [facility], 10/06/2017.
--- NOTE | 2017-10-08 11:44 | CARD ---
APPROVED REPORT EKG Measurement Heart [id number] [id number] <Conclusion> Normal sinus rhythm Normal ECG
== END 2017-10-06 17:40 | disposition home or self-care (01) ==
LOC: H.ER 21:30 → H.ERHOLD 10-06 01:42 → H.MEDSURG1 10-06 03:20
PROVIDERS: ADMIT Family Medicine; ATTEND Family Medicine
DX: R42 Dizziness and giddiness (principal); E11.9 Type 2 diabetes mellitus without complications; E78.00 Pure hypercholesterolemia, unspecified; E78.5 Hyperlipidemia, unspecified; F40.240 Claustrophobia; G47.33 Obstructive sleep apnea (adult) (pediatric); I10 Essential (primary) hypertension; Z87.891 Personal history of nicotine dependence; Z90.49 Acquired absence of other specified parts of digestive tract; F32.9 Major depressive disorder, single episode, unspecified; G89.29 Other chronic pain; Z79.84 Long term (current) use of oral hypoglycemic drugs; Z79.899 Other long term (current) drug therapy; Z23 Encounter for immunization
CPT/HCPCS: 36415; 70450; 70551; 80048; 80053; 80061; 81003; 82948; 83036; 84484; 85025; 85610; 85730; 90471; 90732; 93005; 96360; 96361; 99284; G0378; J2060; J7030; J7040

== ENCOUNTER 2017-11-13 10:46 | Emergency (ER) | payer MEDICAID ==
[2017-11-13 10:47] VITALS: BMI 32.1
[2017-11-13] MEDS ORDERED: Piperacillin/Tazobact 3.375 GM in Sodium Chloride 0.9% 100 ML IVPB STA (12:01)
--- NOTE | 2017-11-13 12:17 | ED PDOC ---
Lower Extremity Pain/Injury Chief Complaint (Provider): right leg swelling History Per: Patient History/Exam Limitations: no limitations Onset/Duration Of Symptoms: Days Current Symptoms Are (Timing): Still Present Additional Complaint(s): 57 yo M with poorly controlled DM2 with neuropathy, hypertension, hyperlipidemia , sleep apnea, depression presented to emergency room today due to noticing increased swelling in right lower extremity. Pt states he noticed swelling last night, but both legs were swollen and he thought it was from walking a lot during the day. In the morning he noticed left leg returned to normal size but right leg was persistently swollen and painful. Upon questioning about wounds on his feet, pt disclosed that he has a wound on base of R great toe that he states was a callus that he picked at, and this morning the skin fell off and left open wound. Denies feeling ill, fevers, chills, shortness of breath, chest pains, GI upset. Admits to occasional numbness and tingling in lower extremities which is not new. 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 PMH: DM2, hyperlipidemia, sleep apnea, diabetic neuropathy Past surg hx: b/l plantar fasciitis surgery, L ankle surgery with hardware, appendectomy Social hx: denies tobacco, alcohol, drug use Allergies: nkda Medications: metformin, gabapentin, enalapril, atorvastatin, glipizide, cymbalta <Tatianna Vasquez - Last Filed: 11/13/17 12:40> <Siddharth Robledo - Last Filed: 11/13/17 15:01> Chief Complaint (Nursing): Lower Extremity Problem/Injury Past Medical History Reviewed: Nursing Documentation, Vital Signs Vital Signs: Last Vital Signs Temp 98.2 F 11/13/17 10:56 Pulse 65 11/13/17 10:56 Resp 20 11/13/17 10:56 BP 127/80 11/13/17 10:56 Pulse Ox 97 11/13/17 10:56 - Medical History PMH: Depression, Diabetes (uncontrolled w/associated neuropathy), HTN, Hypercholesterolemia, Sleep Apnea, Chronic Pain (b/l legs/feet) Denies: HIV, Chronic Kidney Disease - Surgical History Surgical History: Appendectomy Other surgeries: L ankle surgery; bilateral plantar fasciitis surg - Family History Family History: States: Unknown Family Hx <Tatianna Vasquez - Last Filed: 11/13/17 12:40> Vital Signs: Last Vital Signs Temp 98.2 F 11/13/17 10:56 Pulse 65 11/13/17 10:56 Resp 20 11/13/17 10:56 BP 127/80 11/13/17 10:56 Pulse Ox 97 11/13/17 12:40 <Siddharth Robledo - Last Filed: 11/13/17 15:01> - Home Medications Home Medications: Ambulatory Orders Medication Instructions Recorded Atorvastatin [Lipitor] 80 mg PO DAILY 04/01/15 Azelastine HCl 137 mcg NS DAILY 04/01/15 Duloxetine HCl 30 mg PO DAILY 04/01/15 Enalapril Maleate 5 mg PO DAILY 04/01/15 Gabapentin [Neurontin] 1,600 mg PO BID 04/01/15 Glipizide [Glipizide Xl] 5 mg PO DAILY 04/01/15 Montelukast Sodium [Singulair] 10 mg PO DAILY 04/01/15 Levofloxacin [Levaquin] 500 mg PO BID #20 tablet 11/13/17 Naproxen [Naprosyn] 500 mg PO Q12H #20 tab 11/13/17 Sulfamethoxazole/Trimethoprim 1 tab PO BID #20 tab 11/13/17 [Bactrim DS 800 mg-160 mg] - Allergies Allergies/Adverse Reactions: Allergies Allergy/AdvReac Type Severity Reaction Status Date / Time No Known Allergies Allergy Verified 11/13/17 11:24 Wells Criteria for PE - Wells Criteria for Pulmonary Embolism Clinical Signs and Symptoms of DVT: Yes P.E is #1 Diagnosis, or Equally Likely: No Heart Rate >100: No Immobilization at least 3 days;Surgery previous 4 weeks: No Previous, objectively diagnosed PE or DVT: No Hemoptysis: No Malignancy w/treatment within 6 months, or palliative: No Total Score: 3 <Tatianna Vasquez - Last Filed: 11/13/17 12:40> Review of Systems ROS Statement: Except As Marked, All Systems Reviewed And Found Negative Constitutional: Negative for: Fever, Chills, Sweats Cardiovascular: Negative for: Chest Pain, Palpitations Respiratory: Negative for: Cough, Shortness of Breath Gastrointestinal: Negative for: Nausea, Vomiting, Abdominal Pain, Diarrhea, Constipation Genitourinary Male: Negative for: Dysuria Musculoskeletal: Positive for: Other (right leg swelling ) Skin: Positive for: Other (wound on R great toe) Neurological: Positive for: Other (diabetic neuropathy). Negative for: Weakness , Incoordination <Tatianna Vasquez - Last Filed: 11/13/17 12:40> Physical Exam - Reviewed Vital Signs Reviewed: Yes - Physical Exam Appears: Positive for: No Acute Distress Head Exam: Positive for: NORMAL INSPECTION Skin: Positive for: Warm. Negative for: Normal Color Eye Exam: Positive for: Normal appearance, EOMI, PERRL Neck: Positive for: Painless ROM Cardiovascular/Chest: Positive for: Regular Rate, Rhythm, Chest Non Tender Respiratory: Positive for: Normal Breath Sounds. Negative for: Respiratory Distress Gastrointestinal/Abdominal: Positive for: Normal Exam, Bowel Sounds, Soft Back: Positive for: Normal Inspection Extremity: Positive for: Calf Tenderness (right), Swelling (right), Other (2cm x 1 cm wound on base of R great toe) Neurologic/Psych: Positive for: Alert, Oriented, Other (no focal neuro deficits) <Tatianna Vasquez - Last Filed: 11/13/17 12:40> - Laboratory Results Result Diagrams: 11/13/17 12:04 11/13/17 12:15 - ECG O2 Sat by Pulse Oximetry: 97 <Tatianna Vasquez - Last Filed: 11/13/17 12:40> - Laboratory Results Result Diagrams: 11/13/17 12:04 11/13/17 12:15 <Siddharth Robledo - Last Filed: 11/13/17 15:01> Medical Decision Making Medical Decision Making: - CBC - CMP - VBG - Zosyn and vancomycin - Foot X ray 3 view - LE Doppler - Podiatry Spoke to podiatry resident; will evaluate patient. Pt seen/discussed with Dr. Robledo; signed off to Dr. Robledo, [id number]. <Tatianna Vasquez - Last Filed: 11/13/17 12:40> Disposition <Tatianna Vasquez - Last Filed: 11/13/17 12:40> - Patient ED Disposition Is Patient to be Admitted: No Counseled Patient/Family Regarding: Studies Performed, Diagnosis, Need For Followup, Rx Given - Disposition Disposition: Routine/Home Disposition Time: 14:59 <Siddharth Robledo - Last Filed: 11/13/17 15:01> - Clinical Impression Clinical Impression: Cellulitis - Disposition Referrals: Podiatry Clinic [Outside] [facility] [Outside] Condition: FAIR Prescriptions: Levofloxacin [Levaquin] 500 mg PO BID #20 tablet Naproxen [Naprosyn] 500 mg PO Q12H #20 tab Sulfamethoxazole/Trimethoprim [Bactrim DS 800 mg-160 mg] 1 tab PO BID #20 tab Instructions: Cellulitis and Erysipelas (Skin Infections) Forms: [employer] ([place]ian)
[2017-11-13 12:26] LABS: BASO % 0.4 % (0.0-2.0); EOS # 0.3 K/uL (0.0-0.7); HEMOGLOBIN 12.3 g/dL (12.0-18.0); LYMPH # 1.8 K/uL (1.0-4.3); LYMPH % 20.9 % (20.0-40.0); MEAN CELL VOLUME 82.6 fl (80.0-94.0); MEAN CORPUSCULAR HEMOGLOBIN 28.4 pg (27.0-31.0); MEAN CORPUSCULAR HGB CONC 34.4 g/dL (33.0-37.0); MEAN PLATELET VOLUME 9.1 fl (7.2-11.7); MONO # 0.7 K/uL (0.0-0.8); MONO % 8.5 % (0.0-10.0); NEUT # 5.7 K/uL (1.8-7.0); NEUT % 66.2 % (50.0-75.0); RBC 4.31 Mil/uL (4.40-5.90); RED CELL DISTRIBUTION WIDTH 14.4 % (11.5-14.5); WHITE BLOOD COUNT 8.6 K/uL (4.8-10.8)
[2017-11-13 12:27] LABS: VENOUS BLOOD GAS BASE EXCESS 1.7 mmol/L (0.0-2.0); VENOUS BLOOD GAS PCO2 45 mmHg (40-60); VENOUS BLOOD GAS PO2 41 mm/Hg (30-55); VENOUS BLOOD PH 7.39 (7.32-7.43)
[2017-11-13 12:38] LABS: ALB/GLOB RATIO 1.2 (1.0-2.1); ALBUMIN 3.9 g/dL (3.5-5.0); ALT/SGPT 28 U/L (21-72); AST/SGOT 22 U/L (17-59); BLOOD UREA NITROGEN 21 mg/dl (9-20); CALCIUM 9.3 mg/dL (8.4-10.2); GFR AFRICAN-AMERICAN > 60; GFR NON-AFRICAN AMERICAN > 60
[2017-11-13] MEDS ORDERED: Piperacillin/Tazobact 3.375 gm Inj IVPB ONE (12:46)
--- NOTE | 2017-11-13 13:23 | RAD ---
Date of service: 11/13/2017 PROCEDURE: Right Foot Radiographs. HISTORY: wound on R great toe, extremity swelling, DM2 COMPARISON: 06/06/2017 FINDINGS: BONES: Normal. No fracture. JOINTS: Normal. SOFT TISSUES: Soft tissue swelling 1st digit. No evidence of gas or other subcutaneous abnormality. No visulaized radiopaque/visualized foreign body. OTHER FINDINGS: Stable plantar calcaneal spur. IMPRESSION: Soft tissue swelling without acute articular or osseous abnormality. Specifically no evidence to suggest acute osteomyelitis.
--- NOTE | 2017-11-13 13:38 | CP.PCM.CON ---
History of Present Illness - History of Present Illness History of Present Illness: Podiatry consult notes for attending Dr. Galan 57 Y/O M patient with PMH of DM, HTN, Hypercholestremia and neuropathy seen and evaluated at the bedside in the ED for swelling and ulceration of the right big toe and swelling of the right leg. Patient is AAO X 3 and NAD. Patient was sitting in hs bed comfortably. Patient states that yesterday he started to notice something like a dry blister. He states that today it stated to peel off and he found underneath an ulcer. Patient denies any pain at the ulcer site. Patient states that he is feeling pain at his right leg and ankle. Patient states that since yesterday he started to note swelling at his right lower extremity which increased till today. Patient denies any other pedal complaint. patient denies any recent F/N/V/C or SOB. PMH: PMH of DM, HTN, Hypercholestremia and neuropathy. PSH: b/l plantar fasciotomy, ORIF of left foot and ankle fracture, Appendectomy. Social Hx: Ex-smoker (Stopped 20 years ago), Denies ETOH or illicit drug use. Review of Systems - Review of Systems Review of Systems: As per HPI Past Patient History - Past Medical History & Family History Past Medical History?: Yes - Past Social History Smoking Status: Former Smoker - CARDIAC Hx Hypercholesterolemia: Yes Hx Hypertension: Yes - PULMONARY Hx Sleep Apnea: Yes - NEUROLOGICAL Hx Neurological Disorder: No - HEENT Hx HEENT Problems: No - RENAL Hx Chronic Kidney Disease: No - ENDOCRINE/METABOLIC Hx Endocrine Disorders: Yes - HEMATOLOGICAL/ONCOLOGICAL Hx Human Immunodeficiency Virus (HIV): No - INTEGUMENTARY Hx Dermatological Problems: No - MUSCULOSKELETAL/RHEUMATOLOGICAL Hx Falls: Yes - GASTROINTESTINAL Hx Gastrointestinal Disorders: No - GENITOURINARY/GYNECOLOGICAL Hx Genitourinary Disorders: No - PSYCHIATRIC Hx Depression: Yes - SURGICAL HISTORY Hx Appendectomy: Yes - ANESTHESIA Hx Anesthesia: Yes Hx Anesthesia Reactions: No Hx Malignant Hyperthermia: No Meds Home Medications: Home Medication List Medication Instructions Recorded Confirmed Type Levofloxacin [Levaquin] 500 mg PO BID #20 tablet 11/13/17 Rx Naproxen [Naprosyn] 500 mg PO Q12H #20 tab 11/13/17 Rx Sulfamethoxazole/Trimethoprim 1 tab PO BID #20 tab 11/13/17 Rx [Bactrim DS 800 mg-160 mg] Allergies/Adverse Reactions: Allergies Allergy/AdvReac Type Severity Reaction Status Date / Time No Known Allergies Allergy Verified 11/13/17 11:24 - Medications Medications: Current Medications Vancomycin HCl 1 gm/ Sodium (Chloride) 250 mls @ 166.667 mls/hr IVPB ONCE ONE PRN Reason: Protocol Stop: 11/13/17 13:53 Physical Exam - Constitutional Appears: Well, Non-toxic, No Acute Distress - Head Exam Head Exam: ATRAUMATIC, NORMOCEPHALIC - Extremities Exam Additional comments: LE focused exam: Vasc: DP 2/4 b/l. PT 1/4 on the left side and non Palpable on the right side due to edema. Cap refill < 3 sec in all digits. Temp gradient warm to cool on the left side and warm to warmer on the right side. Mild erythema noted in the the right lower leg below the calf and above the ankle. +1 pitting edema in the right LE extendning up to the tibial tuberosity Neuro: Protective sensation diminished b/l. Derm: Open ulcer noted on the plantar aspect of the right allux 4 cm X 2 cm X 0.2 cm surrounded by area of erythema. Base is granular and covered by dried serous secretion. edges are sharp. No malodor. No drainage no undermining, No probing to bone, No tracking. Skin crack noted in the left hallux. MSK: Muscle power intact 5/5 in all muscle groups. Pain on palpating the medial aspect of right ankle and on squeezing the right calf. - Neurological Exam Neurological exam: Alert, Oriented x3 - Psychiatric Exam Psychiatric exam: Normal Affect, Normal Mood Results - Vital Signs Recent Vital Signs: Last Vital Signs Temp 98.2 F 11/13/17 10:56 Pulse 65 11/13/17 10:56 Resp 20 11/13/17 10:56 BP 127/80 11/13/17 10:56 Pulse Ox 97 11/13/17 12:40 - Labs Result Diagrams: 11/13/17 12:04 11/13/17 12:15 Labs: Laboratory Results - last 24 hr 11/13/17 11/13/17 11/13/17 12:00 12:04 12:15 WBC 8.6 RBC 4.31 L Hgb 12.3 Hct 35.6 MCV 82.6 D MCH 28.4 MCHC 34.4 RDW 14.4 Plt Count 213 MPV 9.1 Neut % (Auto) 66.2 Lymph % (Auto) 20.9 [place] % (Auto) 8.5 Eos % (Auto) 4.0 Baso % (Auto) 0.4 Neut # (Auto) 5.7 Lymph # (Auto) 1.8 [place] # (Auto) 0.7 Eos # (Auto) 0.3 Baso # (Auto) 0.0 pO2 41 VBG pH 7.39 VBG pCO2 45 VBG HCO3 25.7 VBG Total CO2 28.6 H VBG O2 Sat (Calc) 78.1 H VBG Base Excess 1.7 VBG Potassium 4.3 Sodium 134.0 138 Chloride 103.0 103 Glucose 126 H Lactate 1.6 FiO2 21.0 Potassium 4.5 Carbon Dioxide 24 Anion Gap 16 BUN 21 H Creatinine 0.8 Est GFR ( Amer) > 60 Est GFR (Non-Af Amer) > 60 Random Glucose 118 H Calcium 9.3 Total Bilirubin 0.7 AST 22 ALT 28 Alkaline Phosphatase 88 Total Protein 7.1 Albumin 3.9 Globulin 3.2 Albumin/Globulin Ratio 1.2 Venous Blood Potassium 4.3 Assessment & Plan - Assessment and Plan (Free Text) Assessment: 57 Y/O M patient seen and evaluated at the bedside in the ED for infected ulcer and cellulites of the right big toe. Plan: Patient seen and evaluated in the ED. Plan discussed in details with attending Adama Pearl Chart, labs and vitals reviewed; Afebrile and no leukocytosis. Right foot x-ray reviewed; No evidence of osteomyelitis. Right LE duplex reviewed; No evidence of DVT. Culture taken from the ulcer and sent to the lab. Ulcer dressed using telfa and DSD. Patient received zosyn , Vanc IV stat dose in the ED. Rx; Bactrim Ds tab. and Levaquin 500mg tab prescribed by the ED doctor. Patient instructed to come back to the ED if there is increased redness, hotness , swelling, if he experiences F/N/V/C. Patient instructed to remove the dressing tomorrow to check the ulcer. Patient expressed verbal understanding. Patient will F/U in the podiatry clinic. - Date & Time Date: 11/13/17 Time: 14:03
--- NOTE | 2017-11-13 14:24 | US ---
Date of service: 11/13/2017 PROCEDURE: Right lower extremity venous duplex Doppler. HISTORY: RLE swelling COMPARISON: None available. TECHNIQUE: Common femoral, superficial femoral, popliteal and posterior tibial veins were evaluated. Flow was assessed with color Doppler, compressibility, assessment of phasic flow and augmentation response. FINDINGS: COMMON FEMORAL VEIN: Unremarkable. SUPERFICIAL FEMORAL VEIN: Unremarkable. POPLITEAL VEIN: Unremarkable. POSTERIOR TIBIAL VEIN: Unremarkable. OTHER FINDINGS: None. IMPRESSION: No sonographic evidence of deep venous thrombosis in the right lower extremity.
[2017-11-13] MEDS ORDERED: Vancomycin 1 g Inj ONE (14:51)
[2017-11-13 15:29] VITALS: RESP 18; O2SAT 100
[2017-11-13] MEDS ORDERED: Naproxen 500 MG TAB PO STA (15:37)
[2017-11-13 17:42] VITALS: BP 124/66; PULSE 64; TEMP 98.4
== END 2017-11-13 17:40 | disposition home or self-care (01) ==
LOC: H.ER 10:46
DX: L03.115 Cellulitis of right lower limb (principal); E11.40 Type 2 diabetes mellitus with diabetic neuropathy, unspecified; E11.621 Type 2 diabetes mellitus with foot ulcer; E78.00 Pure hypercholesterolemia, unspecified; L97.519 Non-pressure chronic ulcer of other part of right foot with unspecified severity; Z79.84 Long term (current) use of oral hypoglycemic drugs; G89.29 Other chronic pain; I10 Essential (primary) hypertension
CPT/HCPCS: 73630; 80053; 82803; 85025; 87040; 87070; 87181; 93971; 96365; 99285; J2543